=== PATIENT | female | born 1965 | race Caucasian/White ===

== ENCOUNTER 2021-10-31 05:19 | Emergency (ER) | payer MEDICARE, OTHER ==
[~2021-10-31] VITALS: Ht 170.2 cm; Wt 63.5 kg
[2021-10-31 07:33] LABS: Amphetamine Screen, Urine NEGATIVE (NEGATIVE); Barbiturate Scree,Urine NEGATIVE (NEGATIVE); Benzodiazephine Screen, Urine NEGATIVE (NEGATIVE); Cannabinoid Screen, Urine NEGATIVE (NEGATIVE); Cocaine Screen, Urine NEGATIVE (NEGATIVE); Opiate Scree,Urine NEGATIVE (NEGATIVE); Phencyclidine Screen, Urine NEGATIVE (NEGATIVE)
[2021-10-31] MEDS ORDERED: THIAMINE 100mg/ml INJ (200mg/2ml VIAL) IV ONE (08:15)
[2021-10-31] MEDS ORDERED: SODIUM CHLORIDE 0.9% 1,000 ML IV ONE (08:15)
[2021-10-31 09:51] VITALS: BP 130/57
== END 2021-10-31 10:00 | disposition home or self-care (01) ==
LOC: ER 05:19 → EDBD 05:19 → ER 10:00
DX: S76.012A Strain of muscle, fascia and tendon of left hip, initial encounter (principal); S66.912A Strain of unspecified muscle, fascia and tendon at wrist and hand level, left hand, initial encounter; F10.10 Alcohol abuse, uncomplicated; I10 Essential (primary) hypertension; Y08.89XA Assault by other specified means, initial encounter; Y93.89 Activity, other specified; Y92.89 Other specified places as the place of occurrence of the external cause; Y99.8 Other external cause status
CPT/HCPCS: 36415; 73110; 73502; 80307; 80320; 96361; 96374; 99285; J3411; J7030